=== PATIENT | female | born 1985 | race Hispanic/Latino ===

== ENCOUNTER → 2024-06-03 | Day surgery (SDC) | payer BC ==
[2024-05-27 16:07] LABS: BASOPHILS % 0.5 % (0.0-1.0); BILIRUBIN,URINE NEGATIVE (NEGATIVE); CLARITY,URINE SL CLOUDY (CLEAR); COLOR,URINE YELLOW (YELLOW); EOSINOPHILS # (AUTO) 0.2 (0.0-0.4); EOSINOPHILS % 2.6 % (0.0-6.0); GLUCOSE, URINE NEGATIVE (NEGATIVE); HEMOGLOBIN 12.6 g/dL (12.0-16.0); KETONES,URINE NEGATIVE (NEGATIVE); LEUKOCYTE ESTERASE ,URINE MODERATE (NEGATIVE); LYMPHOCYTES # (AUTO) 1.6 (1.0-3.2); LYMPHOCYTES % 19.7 % (18.0-39.1); MEAN CORPUSCULAR HEMOGLOBIN 26.8 pg (28-32); MEAN CORPUSCULAR HGB CONC 30.7 g/dL (31-35); MONOCYTES # (AUTO) 0.4 (0.2-0.8); MONOCYTES % 5.4 % (4.4-11.3); NEUTROPHILS # (AUTO) 5.7 (2.1-6.9); NEUTROPHILS % 71.6 % (38.7-80.0); NITRITE,URINE NEGATIVE (NEGATIVE); PH,URINE 6 (5 - 7); PLATELET COUNT 232 x10e3/uL (140-360); PROTEIN,URINE DIPSTICK NEGATIVE (NEGATIVE); RED BLOOD COUNT 4.71 x10e6/uL (3.6-5.1); RED CELL DISTRIBUTION WIDTH 18.1 % (11.7-14.4); URINE UROBILINOGEN 0.2 mg/dL (0.2 - 1); WHITE BLOOD COUNT 8.01 x10e3/uL (4.8-10.8)
[2024-05-27 16:21] LABS: ALANINE AMINOTRANSFERASE 19 IU/L (0-55); ALBUMIN 4.1 g/dL (3.5-5.0); ALKALINE PHOSPHATASE 54 IU/L (40-150); BILIRUBIN,DIRECT 0.1 mg/dL (0.0-0.5); BILIRUBIN,TOTAL 0.3 mg/dL (0.2-1.2); TOTAL PROTEIN 7.3 g/dL (6.5-8.1)
[2024-05-27 16:46] LABS: HIV 1&2 AB SCREEN NON-REACTIVE (NONREACTIVE); HIV- 1 P24 AG SCREEN NON-REACTIVE (NONREACTIVE)
[~2024-06-03] MED LIST: ESTROGENS CONJUGATED VAGINAL CR 45 GM TUBE PV ONE; WEGOVY0.25 MG/0.
[2024-06-03] MEDS: LACTATED RINGER'S 1,000 ML ONE (07:36)
[2024-06-03] MEDS: TRAMADOL HCL 50 MG TAB ONE (10:30)
[2024-06-03 11:15] VITALS: BP 115/81; PULSE 61; RESP 16; O2SAT 100
== END | disposition home or self-care (01) ==
LOC: OR 06:31
PROVIDERS: ATTEND Specialist
DX: N85.00 Endometrial hyperplasia, unspecified (principal); Z98.51 Tubal ligation status; N72 Inflammatory disease of cervix uteri; N92.0 Excessive and frequent menstruation with regular cycle; R87.619 Unspecified abnormal cytological findings in specimens from cervix uteri; D64.9 Anemia, unspecified; E66.9 Obesity, unspecified; Z01.812 Encounter for preprocedural laboratory examination; Z79.85 Long-term (current) use of injectable non-insulin antidiabetic drugs
CPT/HCPCS: 36415; 58563; 80076; 81003; 81025; 84702; 85025; 86850; 86900; 87390; 88305; G0433; G0435; J0694; J7121